=== PATIENT | female | born 1955 | race Caucasian/White ===

== ENCOUNTER 2019-11-21 15:23 | Inpatient (IN) | payer MEDICARE ==
[~2019-11-21] VITALS: Ht 162.6 cm; Wt 72.8 kg
[2019-11-21] VITALS (11 sets, daily range): BP systolic 100–135; BP diastolic 55–79
[~2019-11-21 15:23] MED LIST: EZET10TA70 PO; FENO43CA6 PO; METO50TA82 PO; OMEP-110 PO; PARO10TA56 PO
[2019-11-21] MEDS ORDERED: SODIUM CHLORIDE 0.9% 1,000 ML IV ONE (15:37)
[2019-11-21] MEDS ORDERED: SODIUM CHLORIDE 0.9% 1,000ML IVBOLUS ONE ×2 (16:00→16:30)
[2019-11-21] MEDS ORDERED: SODIUM CHLORIDE FLUSH 10ML SYR IVF ONE (16:00)
--- NOTE | 2019-11-21 16:01 | NUR ---
Pt here for suspecte gi bleed. pt seen at [facility] and told possible bleeding in esophagus. per ems pt is confused and per altered. No recent travel, pt has hx of etoh use and nsaids. Pt able to answer a few questions. Pt has dry black stool on legs and socks. Pt is pale as well. called ems per ems due to syncopal episode on way to restroom. pt connected to monitors, pts rectal temp reading low and hot line started and ivf intiated.
[2019-11-21 16:04] LABS: INTERNATIONAL NORMALIZED RATIO 2.06 (0.93-1.1)
[2019-11-21 16:07] LABS: ALANINE AMINOTRANSFERASE 25 U/L (12-78); ALBUMIN 2.2 g/dL (3.4-5.0); ANION GAP 8 mmol/L (5-15); CHLORIDE 116 mmol/L (98-107); CREATININE 0.74 mg/dL (0.55-1.02)
[2019-11-21 16:12] LABS: ALKALINE PHOSPHATASE 53 U/L (45-117); TOTAL PROTEIN 5.2 g/dL (6.4-8.2)
[2019-11-21 16:13] LABS: BASOPHILS # (AUTO) 0.02 x10^3/uL (0-0.1); BASOPHILS % (AUTO) 0 % (0-1); EOSINOPHILS % (AUTO) 0 % (1-7); LYMPHOCYTES # (AUTO) 1.55 x10^3/uL (1-3.4); LYMPHOCYTES % (AUTO) 20 % (22-44); MD MORPH REVIEW ONLY; MEAN CORPUSCULAR HEMOGLOBIN 33.8 pg (27.0-34.8); MEAN CORPUSCULAR HGB CONC 32.2 g/dL (32.4-35.8); MEAN PLATELET VOLUME 12.9 fL (7.4-10.4); MONOCYTES # (AUTO) 0.72 x10^3/uL (0.2-0.8); MONOCYTES % (AUTO) 9 % (2-9); NEUTROPHILS % (AUTO) 70 % (42-75); PLATELET COUNT 68 x10^3/uL (130-400); RED BLOOD COUNT 2.33 x10^6/uL (3.82-5.3); RED CELL DISTRIBUTION WIDTH 18.3 % (9.6-15.2)
[2019-11-21 16:14] LABS: ANISOCYTOSIS 2+; HYPOCHROMIA 1+; POLYCHROMASIA 1+
[2019-11-21 16:15] LABS: <PLATELET ESTIMATE> DECREASED; LARGE PLATELETS 1+; TARGET CELLS 1+
[2019-11-21 16:20] LABS: O2 FLOW 3.5 L/min
[2019-11-21] MEDS ORDERED: VANCOMYCIN PER PHARMACY MC ONE (16:30)
[2019-11-21] MEDS ORDERED: PIPERACILLIN/TAZO/PMX 4.5GM 100 ML IVPB ONE (16:30)
[2019-11-21] MEDS ORDERED: PIPERACILLIN/TAZO/PMX 3.375GM 50 ML ONE (16:33)
[2019-11-21 16:53] LABS: ACETONE, SERUM Negative (Negative)
[2019-11-21] MEDS ORDERED: VANCOMYCIN 1,500 MG in SODIUM CHLORIDE 0.9% 250 ML IV ONE (17:00)
--- NOTE | 2019-11-21 17:00 | NUR ---
meds requested from pharmacy.
[2019-11-21] MEDS ORDERED: PANTOPRAZOLE 80 MG in SODIUM CHLORIDE 0.9% 50 ML IVPB ONE (17:30)
[2019-11-21] MEDS ORDERED: OCTREOTIDE 500 MCG in SODIUM CHLORIDE 0.9% 99 ML IV PRN (17:30)
[2019-11-21] MEDS ORDERED: THIAMINE 100MG TABLET PO ONE (17:30)
[2019-11-21] MEDS ORDERED: OCTREOTIDE 100MCG/ML, 1ML (0.1MG/ML) IV ONE (17:30)
[2019-11-21] MEDS ORDERED: THIAMINE 100MG TABLET ONE (17:44)
[2019-11-21] MEDS ORDERED: SODIUM CHLORIDE FLUSH 10ML SYR IVF PRN ×2 (18:00)
[2019-11-21] MEDS ORDERED: OCTREOTIDE 100MCG/ML, 1ML (0.1MG/ML) ONE (18:17)
[2019-11-21] MEDS ORDERED: PROMETHAZINE 25 MG/ML, 1ML ONE (18:24)
[2019-11-21] MEDS ORDERED: PROMETHAZINE 25 MG/ML, 1ML IM ONE (19:00)
[2019-11-21] MEDS ORDERED: PHYTONADIONE 10 MG/ML, 1ML IM ONE (19:00)
[2019-11-21] MEDS ORDERED: LORazepam 2 MG/ML, 1ML IVPush ONE (19:00)
[2019-11-21] MEDS ORDERED: PHYTONADIONE 10 MG/ML, 1ML ONE (19:00)
[2019-11-21] MEDS ORDERED: LORazepam 2 MG/ML, 1ML ONE (19:09)
[2019-11-21] MEDS ORDERED: POTASSIUM CHLORIDE 10 MEQ, MVI ADULT 10 ML, FOLIC ACID 1 MG, MAGNESIUM SULFATE 1 GM in ... IV SCH (19:31)
[2019-11-21] MEDS ORDERED: VANCOMYCIN PER PHARMACY MC PRN (20:00)
[2019-11-21] MEDS ORDERED: LORazepam 2 MG/ML, 1ML IV PRN ×4 (20:00)
[2019-11-21] MEDS ORDERED: PROMETHAZINE 25 MG/ML, 1ML IM PRN (20:00)
[2019-11-21] MEDS ORDERED: LABETALOL 5MG/ML, 20ML IV PRN (20:00)
--- NOTE | 2019-11-21 20:18 | NUR ---
late entry: pt was medicated and 3rd iv started. Pt had hotline stopped. Pt transferred to [facility] without complications. All lines verified at bedside.
--- NOTE | 2019-11-21 20:20 | NUR ---
report to james lira.
--- NOTE | 2019-11-21 20:21 | NUR ---
Feli RN aware to complete vitals.
[2019-11-21] MEDS ORDERED: D5%-0.45% NACL 1,000 ML IV SCH (20:31)
[2019-11-21 20:40] LABS: MICROSCOPIC INDICATED
[2019-11-21 20:42] LABS: CULTURE INDICATED? YES
[2019-11-21] MEDS ORDERED: PHARMACOKINETIC MONITORING MC PRN (21:00)
[2019-11-21] MEDS ORDERED: SODIUM CHLORIDE 0.9%, 500ML IVBOLUS PRN (21:00)
[2019-11-21] MEDS ORDERED: PHARMACOKINETIC CONSULTATION MC ONE (21:00)
[2019-11-21] MEDS: LORazepam 2 MG/ML, 1ML IV PRN ×2 (21:50→23:45)
[2019-11-21 23:05] LABS: AMPHETAMINE SCREEN, URINE Negative (Negative); BARBITURATE SCREEN, URINE Negative (Negative); BENZODIAZEPINE SCREEN, URINE Negative (Negative); CANNABINOID SCREEN, URINE Negative (Negative); COCAINE SCREEN, URINE Negative (Negative); METHADONE SCREEN, URINE Negative (Negative); OPIATE SCREEN, URINE Negative (Negative)
[2019-11-21] MEDS ORDERED: ACETAMINOPHEN 650 MG SUPP PR PRN (23:30)
[2019-11-22] MEDS ORDERED: DIAZEPAM 5 MG TABLET PO SCH
[2019-11-22 00:34] VITALS: BP 117/75
[2019-11-22] MEDS ORDERED: PIPERACILLIN/TAZO/PMX 4.5GM 100 ML IV SCH (01:00)
[2019-11-22] MEDS ORDERED: LORazepam 2 MG/ML, 1ML IVPush PRN (01:00)
[2019-11-22] MEDS: OCTREOTIDE 500 MCG in SODIUM CHLORIDE 0.9% 99 ML IV PRN ×3 (02:03→13:43)
[2019-11-22] MEDS: LORazepam 2 MG/ML, 1ML IVPush PRN ×2 (02:05→05:05)
[2019-11-22 04:00] VITALS: BP 134/62
[2019-11-22 04:24] LABS: MEAN CORPUSCULAR HEMOGLOBIN 33.4 pg (27.0-34.8); MEAN CORPUSCULAR VOLUME 101.2 fL (80-100); MEAN PLATELET VOLUME 9.7 fL (7.4-10.4); PLATELET COUNT 111 x10^3/uL (130-400); RED BLOOD COUNT 2.05 x10^6/uL (3.82-5.3); RED CELL DISTRIBUTION WIDTH 18.8 % (9.6-15.2)
[2019-11-22 04:27] LABS: INTERNATIONAL NORMALIZED RATIO 1.76 (0.93-1.1); PROTHROMBIN TIME 18.8 Seconds (9.6-11.5)
[2019-11-22 04:29] LABS: ALANINE AMINOTRANSFERASE 25 U/L (12-78); ANION GAP 5 mmol/L (5-15); CALCIUM 6.9 mg/dL (8.5-10.1); CHLORIDE 121 mmol/L (98-107); CREATININE 0.54 mg/dL (0.55-1.02)
[2019-11-22 04:31] LABS: ALKALINE PHOSPHATASE 42 U/L (45-117); BILIRUBIN,TOTAL 2.6 mg/dL (0.2-1.0); TOTAL PROTEIN 4.6 g/dL (6.4-8.2)
[2019-11-22 04:36] LABS: BASOPHILS # (AUTO) 0.04 x10^3/uL (0-0.1); BASOPHILS % (AUTO) 1 % (0-1); EOSINOPHILS # (AUTO) 0.05 x10^3/uL (0-0.4); EOSINOPHILS % (AUTO) 1 % (1-7); LYMPHOCYTES # (AUTO) 1.97 x10^3/uL (1-3.4); LYMPHOCYTES % (AUTO) 35 % (22-44); MD SCAN; MONOCYTES # (AUTO) 0.57 x10^3/uL (0.2-0.8); MONOCYTES % (AUTO) 10 % (2-9); NEUTROPHILS # (AUTO) 2.97 x10^3/uL (1.8-6.8); NEUTROPHILS % (AUTO) 53 % (42-75)
[2019-11-22 05:19] VITALS: BP 125/56
[2019-11-22 05:36] VITALS: BP 112/61
[2019-11-22] MEDS ORDERED: FUROSEMIDE 40 MG/4 ML ONE (05:46)
[2019-11-22] MEDS ORDERED: FUROSEMIDE 40 MG/4 ML IV ONE (06:00)
[2019-11-22] MEDS ORDERED: SODIUM PHOSPHATE 20 MMOL in SODIUM CHLORIDE 0.9% 500 ML IV ONE (07:00)
[2019-11-22] MEDS ORDERED: MAGNESIUM SULFATE PMX 2GM/50ML 50 ML IV ONE (07:00)
[2019-11-22] MEDS ORDERED: ONDANSETRON 2MG/ML, 2ML IVPush PRN (07:00)
[2019-11-22 07:03] VITALS: BP 124/61
[2019-11-22] MEDS ORDERED: FENTANYL PF 100 MCG/2ML IVPush PRN (07:30)
[2019-11-22] MEDS ORDERED: LIDOCAINE-MPF 1%, 2ML ENDO PRN (07:30)
[2019-11-22] MEDS ORDERED: PHARMACY MAY ADJ FOR RENAL FX MC SCH (07:30)
[2019-11-22 08:00] VITALS: BP 118/65
[2019-11-22] MEDS: PANTOPRAZOLE 80 MG in SODIUM CHLORIDE 0.9% 100 ML IV SCH ×2 (08:18→16:49)
[2019-11-22] MEDS: CEFTRIAXONE PMX 1GM/50ML 50 ML IV SCH (10:14)
[2019-11-22] MEDS: THIAMINE 200 MG in SODIUM CHLORIDE 0.9% 50 ML IV SCH (10:24)
[2019-11-22] MEDS: PHYTONADIONE 10 MG/ML, 1ML SQ SCH (10:24)
[2019-11-22] MEDS: POTASSIUM CHLORIDE 40 MEQ in SODIUM CHLORIDE 0.45% 1,000 ML IV SCH (11:17)
[2019-11-22] MEDS: METRONIDAZOLE PMX 500MG/100ML 100 ML IV SCH ×2 (11:18→17:22)
[2019-11-22] MEDS ORDERED: VANCOMYCIN 1,200 MG in SODIUM CHLORIDE 0.9% 250 ML IV SCH (13:00)
[2019-11-22] MEDS ORDERED: MIDAZOLAM 1 MG/ML, 5ML ONE (15:00)
[2019-11-22] MEDS ORDERED: ETOMIDATE 20 MG/10 ML ONE (15:00)
[2019-11-22] MEDS ORDERED: PROPOFOL 10 MG/ML, 100ML IV ONE (15:00)
[2019-11-22] MEDS: PROPOFOL 100 ML IV PRN (16:45)
[2019-11-22] MEDS ORDERED: POTASSIUM CHLORIDE 10 MEQ, MVI ADULT 10 ML, FOLIC ACID 1 MG, MAGNESIUM SULFATE 1 GM in ... IV SCH (21:00)
[2019-11-23] MEDS ORDERED: DIAZEPAM 5 MG TABLET PO SCH
[2019-11-23] MEDS: OCTREOTIDE 500 MCG in SODIUM CHLORIDE 0.9% 99 ML IV PRN ×3 (00:17→22:37)
[2019-11-23] MEDS: POTASSIUM CHLORIDE 40 MEQ in SODIUM CHLORIDE 0.45% 1,000 ML IV SCH ×2 (00:17→13:47)
[2019-11-23] MEDS: METRONIDAZOLE PMX 500MG/100ML 100 ML IV SCH ×3 (02:33→18:06)
[2019-11-23] MEDS: PANTOPRAZOLE 80 MG in SODIUM CHLORIDE 0.9% 100 ML IV SCH ×2 (03:05→13:46)
[2019-11-23 04:18] LABS: MEAN CORPUSCULAR HEMOGLOBIN 32.1 pg (27.0-34.8); MEAN CORPUSCULAR HGB CONC 32.9 g/dL (32.4-35.8); MEAN CORPUSCULAR VOLUME 97.7 fL (80-100); MEAN PLATELET VOLUME 10.4 fL (7.4-10.4); PLATELET COUNT 83 x10^3/uL (130-400); RED CELL DISTRIBUTION WIDTH 24.2 % (9.6-15.2)
[2019-11-23 04:21] LABS: ANION GAP 7 mmol/L (5-15); CALCIUM 6.7 mg/dL (8.5-10.1); CHLORIDE 122 mmol/L (98-107); CREATININE 0.55 mg/dL (0.55-1.02)
[2019-11-23 04:40] LABS: BASOPHILS # (AUTO) 0.05 x10^3/uL (0-0.1); BASOPHILS % (AUTO) 1 % (0-1); EOSINOPHILS # (AUTO) 0.04 x10^3/uL (0-0.4); EOSINOPHILS % (AUTO) 1 % (1-7); LYMPHOCYTES # (AUTO) 1.12 x10^3/uL (1-3.4); LYMPHOCYTES % (AUTO) 16 % (22-44); MD SCAN; MONOCYTES % (AUTO) 7 % (2-9); NEUTROPHILS # (AUTO) 5.45 x10^3/uL (1.8-6.8); NEUTROPHILS % (AUTO) 76 % (42-75)
[2019-11-23] MEDS ORDERED: POTASSIUM CHLORIDE 40 MEQ in SODIUM CHLORIDE 0.9% 500 ML IV ONE (07:00)
[2019-11-23] MEDS: CEFTRIAXONE PMX 1GM/50ML 50 ML IV SCH (07:28)
[2019-11-23] MEDS ORDERED: COSYNTROPIN 0.25 MG IM ONE (09:00)
[2019-11-23] MEDS: PHYTONADIONE 10 MG/ML, 1ML SQ SCH (09:00)
[2019-11-23] MEDS: THIAMINE 200 MG in SODIUM CHLORIDE 0.9% 50 ML IV SCH (09:34)
[2019-11-23 09:37] LABS: FREE T4 (FREE THYROXINE) 0.84 ng/dL (0.76-1.46)
[2019-11-23] MEDS: PROPOFOL 100 ML IV PRN (22:37)
[2019-11-24] VITALS (7 sets, daily range): BP systolic 92–157; BP diastolic 50–85
[2019-11-24] MEDS: PANTOPRAZOLE 80 MG in SODIUM CHLORIDE 0.9% 100 ML IV SCH (00:53)
[2019-11-24] MEDS: POTASSIUM CHLORIDE 40 MEQ in SODIUM CHLORIDE 0.45% 1,000 ML IV SCH ×3 (00:54→17:54)
[2019-11-24] MEDS: METRONIDAZOLE PMX 500MG/100ML 100 ML IV SCH ×3 (02:37→17:54)
[2019-11-24 04:54] LABS: ANION GAP 6 mmol/L (5-15); CALCIUM 6.7 mg/dL (8.5-10.1); CHLORIDE 125 mmol/L (98-107); CREATININE 0.45 mg/dL (0.55-1.02)
[2019-11-24 05:53] LABS: MEAN CORPUSCULAR HEMOGLOBIN 32.8 pg (27.0-34.8); MEAN CORPUSCULAR VOLUME 99.4 fL (80-100); MEAN PLATELET VOLUME 11.2 fL (7.4-10.4); PLATELET COUNT 79 x10^3/uL (130-400); RED BLOOD COUNT 1.94 x10^6/uL (3.82-5.3); RED CELL DISTRIBUTION WIDTH 23.7 % (9.6-15.2)
[2019-11-24 05:55] LABS: BASOPHILS # (AUTO) 0.01 x10^3/uL (0-0.1); BASOPHILS % (AUTO) 0 % (0-1); EOSINOPHILS # (AUTO) 0.14 x10^3/uL (0-0.4); EOSINOPHILS % (AUTO) 2 % (1-7); LYMPHOCYTES # (AUTO) 0.93 x10^3/uL (1-3.4); LYMPHOCYTES % (AUTO) 14 % (22-44); MD SCAN; MONOCYTES # (AUTO) 0.56 x10^3/uL (0.2-0.8); MONOCYTES % (AUTO) 8 % (2-9); NEUTROPHILS # (AUTO) 4.98 x10^3/uL (1.8-6.8); NEUTROPHILS % (AUTO) 75 % (42-75)
[2019-11-24] MEDS: PROPOFOL 100 ML IV PRN (06:56)
[2019-11-24] MEDS: CEFTRIAXONE PMX 1GM/50ML 50 ML IV SCH (06:56)
[2019-11-24] MEDS ORDERED: FUROSEMIDE 40 MG/4 ML IV ONE (09:30)
[2019-11-24] MEDS: OCTREOTIDE 500 MCG in SODIUM CHLORIDE 0.9% 99 ML IV PRN ×2 (10:00→21:02)
[2019-11-24] MEDS: PANTOPRAZOLE 40 MG IV IVPush SCH ×2 (10:00→20:22)
[2019-11-24] MEDS: PHYTONADIONE 10 MG/ML, 1ML SQ SCH (10:01)
[2019-11-24] MEDS: THIAMINE 200 MG in SODIUM CHLORIDE 0.9% 50 ML IV SCH (10:01)
[2019-11-24] MEDS ORDERED: ZIPRASIDONE 20 MG INJ IM ONE (10:49)
[2019-11-24] MEDS ORDERED: ZIPRASIDONE 20 MG INJ IM PRN (11:00)
[2019-11-25] MEDS: METRONIDAZOLE PMX 500MG/100ML 100 ML IV SCH ×3 (01:34→18:08)
[2019-11-25 04:54] LABS: ANION GAP 7 mmol/L (5-15); CALCIUM 7.4 mg/dL (8.5-10.1); CHLORIDE 122 mmol/L (98-107); CREATININE 0.47 mg/dL (0.55-1.02)
[2019-11-25 05:01] LABS: MEAN CORPUSCULAR HEMOGLOBIN 33.3 pg (27.0-34.8); MEAN CORPUSCULAR HGB CONC 33.4 g/dL (32.4-35.8); MEAN CORPUSCULAR VOLUME 99.6 fL (80-100); MEAN PLATELET VOLUME 10.9 fL (7.4-10.4); PLATELET COUNT 76 x10^3/uL (130-400); RED BLOOD COUNT 2.05 x10^6/uL (3.82-5.3); RED CELL DISTRIBUTION WIDTH 23.4 % (9.6-15.2)
[2019-11-25 05:50] LABS: BASOPHILS # (AUTO) 0.02 x10^3/uL (0-0.1); BASOPHILS % (AUTO) 0 % (0-1); EOSINOPHILS # (AUTO) 0.09 x10^3/uL (0-0.4); EOSINOPHILS % (AUTO) 1 % (1-7); LYMPHOCYTES # (AUTO) 1.01 x10^3/uL (1-3.4); LYMPHOCYTES % (AUTO) 15 % (22-44); MD SCAN; MONOCYTES # (AUTO) 0.99 x10^3/uL (0.2-0.8); MONOCYTES % (AUTO) 14 % (2-9); NEUTROPHILS # (AUTO) 4.76 x10^3/uL (1.8-6.8); NEUTROPHILS % (AUTO) 69 % (42-75)
[2019-11-25] MEDS: CEFTRIAXONE PMX 1GM/50ML 50 ML IV SCH (06:44)
[2019-11-25 07:09] VITALS: BP 136/74
[2019-11-25 07:24] VITALS: BP 144/82
[2019-11-25] MEDS ORDERED: ZIPRASIDONE 20 MG INJ IM PRN (09:00)
[2019-11-25 10:43] VITALS: BP 164/72
[2019-11-25] MEDS: PANTOPRAZOLE 40 MG IV IVPush SCH ×2 (10:45→22:17)
[2019-11-25] MEDS: THIAMINE 200 MG in SODIUM CHLORIDE 0.9% 50 ML IV SCH (10:45)
[2019-11-25] MEDS: PHYTONADIONE 10 MG/ML, 1ML SQ SCH (10:45)
[2019-11-25 15:06] VITALS: BP 160/93
[2019-11-25] MEDS: POTASSIUM CHLORIDE 40 MEQ in SODIUM CHLORIDE 0.45% 1,000 ML IV SCH (15:19)
[2019-11-25 19:11] VITALS: BP 146/84
[2019-11-25] MEDS: OCTREOTIDE 500 MCG in SODIUM CHLORIDE 0.9% 99 ML IV PRN (21:12)
[2019-11-26 00:37] VITALS: BP 146/68
[2019-11-26] MEDS: METRONIDAZOLE PMX 500MG/100ML 100 ML IV SCH ×3 (01:53→17:51)
[2019-11-26] MEDS: CEFTRIAXONE PMX 1GM/50ML 50 ML IV SCH (05:37)
[2019-11-26 07:29] VITALS: BP 143/84
[2019-11-26] MEDS: PANTOPRAZOLE 40 MG IV IVPush SCH ×2 (08:51→22:26)
[2019-11-26] MEDS: OCTREOTIDE 500 MCG in SODIUM CHLORIDE 0.9% 99 ML IV PRN (08:51)
[2019-11-26] MEDS: THIAMINE 200 MG in SODIUM CHLORIDE 0.9% 50 ML IV SCH (08:51)
[2019-11-26] MEDS: POTASSIUM CHLORIDE 40 MEQ in SODIUM CHLORIDE 0.45% 1,000 ML IV SCH (12:30)
[2019-11-26 12:34] VITALS: BP 137/79
[2019-11-26 19:52] VITALS: BP 114/74
[2019-11-27 01:27] VITALS: BP 135/72
[2019-11-27] MEDS: METRONIDAZOLE PMX 500MG/100ML 100 ML IV SCH ×2 (02:03→11:27)
[2019-11-27] MEDS: CEFTRIAXONE PMX 1GM/50ML 50 ML IV SCH (05:55)
[2019-11-27 06:36] VITALS: BP 146/82
[2019-11-27 06:44] LABS: ANION GAP 6 mmol/L (5-15); CALCIUM 7.8 mg/dL (8.5-10.1); CHLORIDE 116 mmol/L (98-107); CREATININE 0.45 mg/dL (0.55-1.02)
[2019-11-27 07:22] LABS: MD YES; MEAN CORPUSCULAR HEMOGLOBIN 32.6 pg (27.0-34.8); MEAN CORPUSCULAR HGB CONC 32.8 g/dL (32.4-35.8); MEAN CORPUSCULAR VOLUME 99.1 fL (80-100); PLATELET COUNT 76 x10^3/uL (130-400)
[2019-11-27 07:26] LABS: ANISOCYTOSIS 2+; BASOS#(MANUAL) 0.14 x10^3/uL (0-0.1); BASOS% (MANUAL) 2 % (0-1); EOS#(MANUAL) 0.07 x10^3/uL (0.0-0.4); EOS% (MANUAL) 1 % (1-7); LYMPHS% (MANUAL) 7 % (22-44); MONOS#(MANUAL) 0.94 x10^3/uL (0.3-2.7); MONOS% (MANUAL) 13 % (2-9); NRBC % (MANUAL) 2 % (0-1); SEG#(MANUAL) 5.54 x10^3/uL (1.8-6.8); SEGS% (MANUAL) 77 % (42-75)
[2019-11-27 07:27] LABS: <PLATELET ESTIMATE> DECREASED; LARGE PLATELETS 1+; POLYCHROMASIA 1+
[2019-11-27] MEDS: POTASSIUM CHLORIDE 40 MEQ in SODIUM CHLORIDE 0.45% 1,000 ML IV SCH (09:56)
[2019-11-27] MEDS: PANTOPRAZOLE 40 MG IV IVPush SCH (09:56)
[2019-11-27] MEDS: THIAMINE 200 MG in SODIUM CHLORIDE 0.9% 50 ML IV SCH (09:56)
[2019-11-27] MEDS ORDERED: METR500P29 IV (10:28)
[2019-11-27] MEDS ORDERED: CEFT1FRO2 IV (10:28)
[2019-11-27] MEDS ORDERED: THIA100T67 PO (10:28)
[2019-11-27] MEDS ORDERED: PANT40GR PO (10:29)
[2019-11-27 14:36] VITALS: BP 112/58
== END 2019-11-27 16:47 | DRG 871 ==
LOC: ED 16:58 → EDIP 17:40 → CCU 20:07 → 4EST 11-25 12:07
PROVIDERS: ADMIT Hospitalist; ATTEND Hospitalist
PROC: 5A1945Z Respiratory Ventilation, 24-96 Consecutive Hours (ICD-10-PCS; 2019-11-22)
PROC: 0BH18EZ Insertion of Endotracheal Airway into Trachea, Via Natural or Artificial Opening Endoscopic (ICD-10-PCS; 2019-11-22)
PROC: HZ2ZZZZ Detoxification Services for Substance Abuse Treatment (ICD-10-PCS; 2019-11-22)
PROC: 0DJ08ZZ Inspection of Upper Intestinal Tract, Via Natural or Artificial Opening Endoscopic (ICD-10-PCS; 2019-11-22)
PROC: 30233N1 Transfusion of Nonautologous Red Blood Cells into Peripheral Vein, Percutaneous Approach (ICD-10-PCS; 2019-11-22)
PROC: 30233K1 Transfusion of Nonautologous Frozen Plasma into Peripheral Vein, Percutaneous Approach (ICD-10-PCS; 2019-11-22)
PROC: 30233R1 Transfusion of Nonautologous Platelets into Peripheral Vein, Percutaneous Approach (ICD-10-PCS; 2019-11-22)
PROC: 06L38CZ Occlusion of Esophageal Vein with Extraluminal Device, Via Natural or Artificial Opening Endoscopic (ICD-10-PCS; principal; 2019-11-22 08:00)
PROC: 02HV33Z Insertion of Infusion Device into Superior Vena Cava, Percutaneous Approach (ICD-10-PCS; 2019-11-25)
PROC: B5181ZA Fluoroscopy of Superior Vena Cava using Low Osmolar Contrast, Guidance (ICD-10-PCS; 2019-11-25)
PROC: B548ZZA Ultrasonography of Superior Vena Cava, Guidance (ICD-10-PCS; 2019-11-25)
DX: A41.9 Sepsis, unspecified organism (principal); E43 Unspecified severe protein-calorie malnutrition; G93.41 Metabolic encephalopathy; J96.01 Acute respiratory failure with hypoxia; I85.01 Esophageal varices with bleeding; K27.4 Chronic or unspecified peptic ulcer, site unspecified, with hemorrhage; J69.0 Pneumonitis due to inhalation of food and vomit; F10.239 Alcohol dependence with withdrawal, unspecified; D68.9 Coagulation defect, unspecified; D62 Acute posthemorrhagic anemia; K76.6 Portal hypertension; E87.4 Mixed disorder of acid-base balance; R18.8 Other ascites; Z99.11 Dependence on respirator [ventilator] status; E78.5 Hyperlipidemia, unspecified; F32.9 Major depressive disorder, single episode, unspecified; D69.6 Thrombocytopenia, unspecified; R65.20 Severe sepsis without septic shock; K70.9 Alcoholic liver disease, unspecified; R41.0 Disorientation, unspecified; K31.89 Other diseases of stomach and duodenum; Z79.899 Other long term (current) drug therapy; Z68.27 Body mass index [BMI] 27.0-27.9, adult
CPT/HCPCS: 36415; 36430; 36573; 36600; 70450; 71045; 80048; 80053; 80307; 81001; 82010; 82140; 82533; 82803; 83605; 83690; 83735; 83880; 84100; 84439; 84443; 84478; 84481; 85018; 85025; 85610; 85730; 86850; 86900; 86923; 87040; 87070; 87081; 87086; 87205; 93005; 94002; 94003; 96372; 96374; 96375; G0378; J0696; J1940; J2250; J2354; J2543; J2550; J2704; J3370; J3411; J3430; J3475; J3480; J3486; C1751; C1769; C9113; J0834; J2060; J7030; J7040; J7050; P9016; P9017; P9035